=== PATIENT | male | born 1990 | race African-American/Black ===

== ENCOUNTER 2018-12-27 17:33 | Emergency (ER) | payer MEDICAID ==
[~2018-12-27] VITALS: Ht 165.1 cm; Wt 68.0 kg
--- NOTE | 2018-12-27 17:36 | NUR ---
PT A/OX4, BIB [facility], C/O SOB. PER ELECTRIC FREIGHT CAR OPERATOR'S REPORT, PT WAS ADMINISTERED A BREATHING TREATMENT IN THE FIELD. VSS. WHEEZING NOTED IN ALL LUNG GONZALEZ. PT DENIES PAIN, C/P, N/V/D, DIZZINESS, HEADACHE. ER MD AT BEDSIDE FOR MSE.
[2018-12-27] MEDS ORDERED: ALBU18HF2 IH (17:41)
[2018-12-27] MEDS ORDERED: IPRATROPIUM BROMIDE 0.5 MG/2.5 ML NEBU ONE ×2 (17:43→20:14)
[2018-12-27] MEDS ORDERED: ALBUTEROL SULFATE 2.5 MG/ 0.5 ML NEBU ONE (17:44)
[2018-12-27] MEDS ORDERED: ALBUTEROL SULFATE 2.5 MG/ 0.5 ML NEBU NEB ONE (17:45)
[2018-12-27] MEDS ORDERED: methylPREDNISolone SOD SUCC 125 MG/2 ML VIAL IV ONE (17:45)
[2018-12-27] MEDS ORDERED: IPRATROPIUM BROMIDE 0.5 MG/2.5 ML NEBU NEB ONE ×2 (17:45→19:45)
[2018-12-27] MEDS ORDERED: IV NORMAL SALINE 1000 ML BAG IV ONE (17:45)
[2018-12-27] MEDS ORDERED: methylPREDNISolone SOD SUCC 125 MG/2 ML VIAL ONE (17:49)
[2018-12-27] MEDS ORDERED: ONDANSETRON 4 MG/2 ML VIAL ONE (17:53)
[2018-12-27] MEDS ORDERED: ONDANSETRON IV *ER 4 MG/2 ML VIAL IV ONE (18:00)
--- NOTE | 2018-12-27 19:04 | NUR ---
SHIFT REPORT GIVEN TO JARON Loza RN.
--- NOTE | 2018-12-27 19:21 | NUR ---
Received report from Tha RN, pt. resting in bed, VSS, NAD, bed in low position, fluids infusing, IV patent, all pt. needs met,
[2018-12-27] MEDS ORDERED: MAGNESIUM SULFATE 2 GM in IV DEXTROSE 5% 100 ML IV ONE (19:45)
[2018-12-27] MEDS ORDERED: ALBUTEROL SULFATE 2.5 MG/3 ML NEBU NEB ONE (19:45)
[2018-12-27] MEDS ORDERED: ALBUTEROL SULFATE 2.5 MG/3 ML NEBU ONE (20:13)
[2018-12-27] MEDS ORDERED: MAGNESIUM SULFATE 1 GM/2 ML VIAL ONE (20:18)
[2018-12-27] MEDS ORDERED: MAGNESIUM SULFATE/D5W 100 ML ONE (20:18)
--- NOTE | 2018-12-27 20:30 | NUR ---
RT at bedside for breathing tx,
--- NOTE | 2018-12-27 21:47 | NUR ---
Pt. resting in bed, IV infusing - no s/s infiltration/phlebitis,
--- NOTE | 2018-12-27 22:28 | NUR ---
Patient discharged to home in stable conditon. Written and verbal after care instructions given. Patient verbalizes understanding of instructions. Pt. d/c w/ prescriptions per MD order, ID band/IV removed, ambulated off unit w/ steady gait, all belongings w/ pt., NAD,
== END 2018-12-27 22:37 | disposition home or self-care (01) ==
LOC: ER 17:36
DX: J45.901 Unspecified asthma with (acute) exacerbation (principal); F17.290 Nicotine dependence, other tobacco product, uncomplicated; Z79.899 Other long term (current) drug therapy
CPT/HCPCS: 94644 ×2; 96365; 96366; 96375; 99285; 99406; J2405; J2930; J3475 ×2; A4663; J3590; J7030; J7040

== ENCOUNTER 2019-05-10 20:06 | Emergency (ER) | payer MEDICAID ==
[~2019-05-10] VITALS: Ht 170.2 cm; Wt 70.3 kg
[~2019-05-10 20:06] MED LIST: ALBU18HF2 IH
--- NOTE | 2019-05-10 20:10 | NUR ---
PT RECEIVED BY RESCUE FROM HOME. C/O SOB, RECEIVED ALBUTEROL EN ROUTE WITH SOME RELIEF. PPMHX: +ASTHMA, 1 asthma episode a month -CYANOSIS,-CARDIAC DISTRESS, -dizziness, -nvd, -headache +sob upon exertion, EQUAL RISE AND FALL OF CHEST, Siderailsx 2 up for safety, reassured MD AT BEDSIDE FOR HX AND PHYS RT AT BEDSIDE
[2019-05-10] MEDS ORDERED: ALBUTEROL SULFATE 2.5 MG/3 ML NEBU NEB ONE (20:15)
[2019-05-10] MEDS ORDERED: predniSONE 10 MG TABLET PO ONE (20:15)
[2019-05-10] MEDS ORDERED: IPRATROPIUM BROMIDE 0.5 MG/2.5 ML NEBU NEB ONE (20:15)
[2019-05-10] MEDS ORDERED: IPRATROPIUM BROMIDE 0.5 MG/2.5 ML NEBU ONE (20:16)
[2019-05-10] MEDS ORDERED: ALBUTEROL SULFATE 2.5 MG/3 ML NEBU ONE (20:16)
--- NOTE | 2019-05-10 20:28 | NUR ---
Pt still on breathing treatment per RT precision lens technician at bedside Pt NAD. Kept warm dry and comfortable
--- NOTE | 2019-05-10 21:18 | NUR ---
Patient discharged to home in stable conditon. Written and verbal after care instructions given. Patient verbalizes understanding of instructions. ambulatory with stable gait. homeless discharge waiver signed. resources given and made available. Pt states "I have a place to stay tonight with my mother, I can take the bus" all belongings with patient
[2019-05-10 21:20] VITALS: BP 138/75
== END 2019-05-10 21:19 | disposition home or self-care (01) ==
LOC: ER 20:06
DX: J45.909 Unspecified asthma, uncomplicated (principal); F12.10 Cannabis abuse, uncomplicated; Z79.899 Other long term (current) drug therapy
CPT/HCPCS: 71045; 94640; 99283; J7512; A4663; J3590

== ENCOUNTER 2019-05-17 21:38 | Emergency (ER) | payer MEDICAID ==
[~2019-05-17] VITALS: Ht 165.1 cm; Wt 70.3 kg
[2019-05-17] MEDS ORDERED: IPRATROPIUM BROMIDE 0.5 MG/2.5 ML NEBU NEB ONE (21:45)
[2019-05-17] MEDS ORDERED: predniSONE 20 MG TABLET PO ONE (21:45)
[2019-05-17] MEDS ORDERED: ALBUTEROL SULFATE 2.5 MG/3 ML NEBU NEB ONE (21:45)
--- NOTE | 2019-05-17 21:45 | NUR ---
Dr. Eaton at bedside for MSE.
[2019-05-17] MEDS ORDERED: predniSONE 20 MG TABLET ONE (21:50)
[2019-05-17] MEDS ORDERED: IPRATROPIUM BROMIDE 0.5 MG/2.5 ML NEBU ONE (21:54)
[2019-05-17] MEDS ORDERED: ALBUTEROL SULFATE 2.5 MG/3 ML NEBU ONE (21:54)
--- NOTE | 2019-05-17 22:26 | NUR ---
Patient discharged to home in stable conditon. Written and verbal after care instructions given. Patient verbalizes understanding of instructions. Pt ambulated out of ER with steady gait, no acute signs of distress, VSS, all belongings taken.
[2019-05-17 22:27] VITALS: BP 139/77
== END 2019-05-17 22:28 | disposition home or self-care (01) ==
LOC: ER 21:38
DX: J45.909 Unspecified asthma, uncomplicated (principal); F12.10 Cannabis abuse, uncomplicated; Z79.899 Other long term (current) drug therapy
CPT/HCPCS: 94640; 99283; J7512; A4663; J3590

== ENCOUNTER 2019-05-30 16:44 | Emergency (ER) | payer MEDICAID ==
[~2019-05-30] VITALS: Ht 165.1 cm; Wt 68.0 kg
[2019-05-30] MEDS ORDERED: ALBUTEROL SULFATE 2.5 MG/3 ML NEBU NEB ONE (18:15)
[2019-05-30] MEDS ORDERED: predniSONE 10 MG TABLET PO ONE (18:15)
[2019-05-30] MEDS ORDERED: IPRATROPIUM BROMIDE 0.5 MG/2.5 ML NEBU NEB ONE (18:15)
[2019-05-30] MEDS ORDERED: ALBUTEROL SULFATE 2.5 MG/3 ML NEBU ONE (18:23)
[2019-05-30] MEDS ORDERED: IPRATROPIUM BROMIDE 0.5 MG/2.5 ML NEBU ONE (18:24)
[2019-05-30] MEDS ORDERED: ALBUTEROL SULFATE 2.5 MG/ 0.5 ML NEBU ONE (18:24)
[2019-05-30] MEDS ORDERED: predniSONE 50 MG TABLET ONE (18:24)
[2019-05-30] MEDS ORDERED: predniSONE 10 MG TABLET ONE (18:24)
--- NOTE | 2019-05-30 20:20 | NUR ---
Patient speaking with no SOB noted. States "I feel alot better now."
--- NOTE | 2019-05-30 20:38 | NUR ---
Patient discharged to home in stable conditon. Written and verbal after care instructions given. Patient verbalizes understanding of instructions. Walked out of ER with no distress noted.
[2019-05-30 20:40] VITALS: BP 140/88
== END 2019-05-30 20:40 | disposition home or self-care (01) ==
LOC: ER 16:46
DX: J45.909 Unspecified asthma, uncomplicated (principal); F17.200 Nicotine dependence, unspecified, uncomplicated; Z79.899 Other long term (current) drug therapy
CPT/HCPCS: 94644; 99285; J7512 ×2; A4663; J3590

== ENCOUNTER 2019-09-01 00:20 | Emergency (ER) | payer MEDICAID ==
[~2019-09-01] VITALS: Ht 170.2 cm; Wt 65.8 kg
--- NOTE | 2019-09-01 00:20 | NUR ---
Dr. Duong at bedside for MSE.
[2019-09-01] MEDS ORDERED: predniSONE 20 MG TABLET ONE (00:26)
[2019-09-01] MEDS ORDERED: predniSONE 10 MG TABLET PO ONE (00:30)
[2019-09-01] MEDS ORDERED: ALBUTEROL SULFATE 2.5 MG/3 ML NEBU NEB ONE (00:30)
[2019-09-01] MEDS ORDERED: IPRATROPIUM BROMIDE 0.5 MG/2.5 ML NEBU NEB ONE (00:30)
--- NOTE | 2019-09-01 00:35 | NUR ---
Respiratory at bedside.
[2019-09-01] MEDS ORDERED: IPRATROPIUM BROMIDE 0.5 MG/2.5 ML NEBU ONE (00:39)
[2019-09-01] MEDS ORDERED: ALBUTEROL SULFATE 2.5 MG/3 ML NEBU ONE (00:39)
[2019-09-01 01:00] VITALS: BP 112/110
--- NOTE | 2019-09-01 01:00 | NUR ---
Patient discharged to home in stable conditon. Written and verbal after care instructions given. Patient verbalizes understanding of instructions. Pt states he's feeling better, out of ER with steady gait, VSS, no acute signs of distress, all belongings taken.
== END 2019-09-01 01:01 | disposition home or self-care (01) ==
LOC: ER 00:22
DX: J45.909 Unspecified asthma, uncomplicated (principal); F17.200 Nicotine dependence, unspecified, uncomplicated; Z79.899 Other long term (current) drug therapy
CPT/HCPCS: 94640; 99283; J7512; A4663; J3590

== ENCOUNTER 2019-09-03 12:46 | Emergency (ER) | payer MEDICAID ==
[~2019-09-03] VITALS: Ht 165.1 cm; Wt 68.0 kg
--- NOTE | 2019-09-03 12:53 | NUR ---
PT IS IN ROOM #1A. DR REED EVALUATED THE PT.
[2019-09-03] MEDS ORDERED: ALBUTEROL SULFATE 2.5 MG/3 ML NEBU NEB ONE ×4 (13:15→16:30)
[2019-09-03] MEDS ORDERED: ALBUTEROL SULFATE 2.5 MG/3 ML NEBU ONE ×2 (13:22→16:23)
[2019-09-03] MEDS ORDERED: predniSONE 20 MG TABLET PO ONE (13:30)
[2019-09-03] MEDS ORDERED: predniSONE 20 MG TABLET ONE (13:50)
--- NOTE | 2019-09-03 18:04 | NUR ---
PT DECIDED TO LEAVE [facility] ER AMA. DR REED EXPLAINED ALL RISKS OF LEAVING EMARGENCY ROOM AMA TO THE PT. PT VERBALISED FULL UNDERSTANDING OF 's EXPLANATION. PT SIGNED AMA FORM AND LEFT HOSPITAL AMA BY TAXI.
[2019-09-03 18:06] VITALS: BP 137/82
== END 2019-09-03 18:06 | disposition left against medical advice (07) ==
LOC: ER 12:48
DX: J45.902 Unspecified asthma with status asthmaticus (principal); F17.200 Nicotine dependence, unspecified, uncomplicated; Z79.899 Other long term (current) drug therapy
CPT/HCPCS: 71045; 94644; 94645; 99285; J7512; A4663